=== PATIENT | female | born 1960 | race Caucasian/White ===

== ENCOUNTER 2019-11-25 23:59 | Emergency (ER) | payer BC, OTHER ==
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
== END 2019-11-26 01:00 | disposition home or self-care (01) ==
LOC: LL.ED 23:59
DX: S00.83XA Contusion of other part of head, initial encounter (principal); S30.0XXA Contusion of lower back and pelvis, initial encounter; S20.411A Abrasion of right back wall of thorax, initial encounter; Y04.8XXA Assault by other bodily force, initial encounter
CPT/HCPCS: 99283

== ENCOUNTER 2020-01-30 18:29 | Emergency (ER) | payer SELFPAY ==
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
[2020-01-30] MEDS ORDERED: Bacitracin/Neomycin/Polymyxin B Oint 0.9 GM U/D Packet TOP ONE (18:56)
[2020-01-30] MEDS ORDERED: Diphtheria,Pertussis(Acell),Tetanus Vaccine 0.5 ML SDV IM ONE (19:11)
== END 2020-01-30 19:52 | disposition home or self-care (01) ==
LOC: LL.ED 18:29
DX: S42.292A Other displaced fracture of upper end of left humerus, initial encounter for closed fracture (principal); R03.0 Elevated blood-pressure reading, without diagnosis of hypertension; Z87.891 Personal history of nicotine dependence; Z23 Encounter for immunization; W22.8XXA Striking against or struck by other objects, initial encounter
CPT/HCPCS: 73060-50; 90471; 90715; 99283-25

== ENCOUNTER 2020-12-01 13:48 | Emergency (ER) | payer MEDICAID ==
[2020-12-01] MEDS ORDERED: Sodium Chloride 0.9% 10 ML Syringe FLUSH PRN (14:04)
--- NOTE | 2020-12-01 14:04 | EDM.PDOC ---
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 Qualifiers: Osteoarthritis location: multiple joints Osteoarthritis type: primary Qualified Code(s): M89.49 - Other hypertrophic osteoarthropathy, multiple sites (8) Hyperuricemia SNOMED Code(s): 69900862 Code(s): E79.0 - HYPERURICEMIA W/O SIGNS OF INFLAM ARTHRIT AND TOPHACEOUS DIS Status: Acute Priority: Medium Current Visit: Yes Onset Date: 12/01/20 Annotation/Comment:: Newly diagnosed. No gout type symptoms. (9) Hypoalbuminemia SNOMED Code(s): 665235566 Code(s): E88.09 - OTH DISORDERS OF PLASMA-PROTEIN METABOLISM, NEC Status: Chronic Priority: Medium Current Visit: Yes Onset Date: ~11/12/20 Annotation/Comment:: Note hepatic failure as above. (10) Hypokalemia SNOMED Code(s): 77337907 Code(s): E87.6 - HYPOKALEMIA Status: Chronic Priority: Medium Current Visit: Yes Onset Date: ~11/12/20 Annotation/Comment:: IV fluids as above. - Problem List Review Problem List Initiated/Reviewed/Updated: Yes - My Orders Last 24 Hours: My Active Orders 12/01/20 Breakfast Nothing Per Oral Diet [DIET] 12/01/20 14:04 Sodium Chloride 0.9% [Saline Flush] 10 ml FLUSH ASDIRECTED PRN Obtain Past Medical Record [OM.PC] Urgent Peripheral IV Insertion Adult [OM.PC] Stat Resuscitation Status Stat 12/01/20 14:05 Peripheral IV Care [RC] . DIRECTED 12/01/20 14:06 Cardiac Monitoring [RC] . DIRECTED Chest 1V Frontal [CR] Stat 12/01/20 17:15 Lactated Ringers [Ringers, Lactated] 1,000 ml IV ASDIRECTED - Assessment/Plan Last 24 Hours: My Active Orders 12/01/20 Breakfast Nothing Per Oral Diet [DIET] 12/01/20 14:04 Sodium Chloride 0.9% [Saline Flush] 10 ml FLUSH ASDIRECTED PRN Obtain Past Medical Record [OM.PC] Urgent Peripheral IV Insertion Adult [OM.PC] Stat Resuscitation Status Stat 12/01/20 14:05 Peripheral IV Care [RC] . DIRECTED 12/01/20 14:06 Cardiac Monitoring [RC] . DIRECTED Chest 1V Frontal [CR] Stat 12/01/20 17:15 Lactated Ringers [Ringers, Lactated] 1,000 ml IV ASDIRECTED Assessment:: As above. Plan: As above. Extensive precautions were given to the patient, who is in agreement with the treatment plan.
[2020-12-01] MEDS: Sodium Chloride 0.9% 1,000 ML IV ONE (14:39)
[2020-12-01 14:41] LABS: PTT,PARTIAL THROMBOPLSTIN TIME 36.1 SEC (24.5-32.8)
[2020-12-01 15:03] LABS: CHLORIDE,CL 99 mmol/L (98-107); SODIUM,NA 138 mmol/L (136-145)
[2020-12-01] MEDS: Lactated Ringers 1,000 ML IV ONE (16:12)
[2020-12-01] MEDS ORDERED: Lactated Ringers 1,000 ML IV SCH (17:15)
== END 2020-12-01 17:07 ==
LOC: LL.ED 13:48
DX: I95.89 Other hypotension (principal); D72.825 Bandemia; M89.49 Other hypertrophic osteoarthropathy, multiple sites; K70.40 Alcoholic hepatic failure without coma; F41.8 Other specified anxiety disorders; D53.9 Nutritional anemia, unspecified; E87.6 Hypokalemia; E88.09 Other disorders of plasma-protein metabolism, not elsewhere classified; E79.0 Hyperuricemia without signs of inflammatory arthritis and tophaceous disease; J44.9 Chronic obstructive pulmonary disease, unspecified; Z79.899 Other long term (current) drug therapy; Z87.891 Personal history of nicotine dependence
CPT/HCPCS: 36415; 71045; 80053; 80307; 82140; 82150; 83605; 83690; 83735; 84550; 85025; 85610; 85730; 87635; 99285; J7030; J7120; 99284; U0002

== ENCOUNTER 2022-05-16 20:24 | Emergency (ER) | payer MEDICAID ==
[2022-05-16 21:15] LABS: ANION GAP 11.2 meq/L (7-15); CHLORIDE,CL 103 mmol/L (98-107); SODIUM,NA 137 mmol/L (136-145)
[2022-05-16 21:19] LABS: ESTIMATED GFR 24 mL/min (>=60)
[2022-05-16] MEDS ORDERED: cefTRIAXone 1 GM in Sodium Chloride 0.9% 100 ML IV ONE (21:20)
[2022-05-16] MEDS ORDERED: Sodium Chloride 0.9% 1,000 ML IV SCH (21:30)
[2022-05-16] MEDS ORDERED: Acetaminophen 325 MG Tab PO ONE (21:34)
[2022-05-16] MEDS ORDERED: Sodium Chloride 0.9% 1,000 ML IV ONE (22:30)
[2022-05-17 03:42] LABS: ANION GAP 10.5 meq/L (7-15); CHLORIDE,CL 106 mmol/L (98-107); SODIUM,NA 138 mmol/L (136-145)
[2022-05-17 03:43] LABS: ESTIMATED GFR 22 mL/min (>=60)
== END 2022-05-17 04:23 ==
LOC: LL.ED 20:24
DX: N39.0 Urinary tract infection, site not specified (principal); R31.9 Hematuria, unspecified; J44.9 Chronic obstructive pulmonary disease, unspecified; Z79.899 Other long term (current) drug therapy
CPT/HCPCS: 36415; 74018; 80048; 80053; 81001; 82140; 82150; 83605; 83690; 85025; 87040; 87086; 96361; 96365; 99284; 99284-25; A9270-GY; J0696; J7030

== ENCOUNTER 2022-05-21 00:58 | Emergency (ER) | payer MEDICAID ==
[2022-05-21] MEDS ORDERED: Sodium Chloride 0.9% 10 ML Syringe FLUSH PRN (01:18)
[2022-05-21] MEDS ORDERED: Ondansetron 4 MG/2 ML SDV IVPUSH ONE ×2 (01:19→09:37)
[2022-05-21] MEDS ORDERED: HYDROmorphone 0.5 MG/0.5 ML Syringe IVPUSH ONE ×2 (01:28→10:24)
[2022-05-21] MEDS ORDERED: Sodium Chloride 0.9% 1,000 ML IV ONE (01:29)
[2022-05-21 02:04] LABS: CHLORIDE,CL 104 mmol/L (98-107); SODIUM,NA 141 mmol/L (136-145)
[2022-05-21 02:06] LABS: PTT,PARTIAL THROMBOPLSTIN TIME 29.6 SEC (23.6-29.8)
[2022-05-21 02:16] LABS: ANION GAP 20.6 meq/L (7-15); ESTIMATED GFR 55 mL/min (>=60)
[2022-05-21] MEDS ORDERED: Iopamidol 612 MG/ML 100 ML Bottle IVPUSH ONE (02:38)
[2022-05-21] MEDS ORDERED: Lactated Ringers 1,000 ML IV SCH (05:15)
[2022-05-21] MEDS ORDERED: Magnesium Sulfate/Water 2 GM in Premix Bag 1 BAG IV ONE (05:22)
[2022-05-21] MEDS ORDERED: Metoprolol Tartrate 25 MG Tab PO ONE (05:41)
[2022-05-21] MEDS ORDERED: Ondansetron 4 MG/2 ML SDV ONE (09:37)
== END 2022-05-21 11:40 ==
LOC: LL.ED 00:58
DX: S73.005A Unspecified dislocation of left hip, initial encounter (principal); D73.5 Infarction of spleen; J44.9 Chronic obstructive pulmonary disease, unspecified; N20.0 Calculus of kidney; D69.6 Thrombocytopenia, unspecified; E87.2 Acidosis; Z79.899 Other long term (current) drug therapy
CPT/HCPCS: 36415; 51701; 74177; 80053; 80307; 81001; 82140; 82150; 82272; 83605; 83690; 83735; 85025; 85610; 85730; 86140; 87086; 94761; 96361; 96365; 96375; 96376; 99284; 99285; A9270; J1170; J2405; J3475; J7030; J7120; Q9967